=== PATIENT | male | born 1960 | race Caucasian/White ===

== ENCOUNTER 2017-11-16 07:35 | Day surgery (SDC) | payer OTHER ==
[2017-11-14 11:40] VITALS: BMI 36.6
--- NOTE | 2017-11-16 07:28 | HP ---
History & Physical Update - History History: No Change - Physical Physical: No Change - Assessment Assessment: No Change - Plan Plan: No Change (Initial H&P is in his paper chart. No new complaints or medictaions. Here today for elective L3/4 laminectomy, possible discectomy)
[2017-11-16] MEDS ORDERED: oxyCODONE HCL 10 MG SUSTAINED ACTING TABLET PO STA (08:35)
[2017-11-16] MEDS ORDERED: CEFAZOLIN 2 GM in DEXTROSE 5%-WATER - 100 ML IVPB ONE (09:30)
[2017-11-16] MEDS ORDERED: MIDAZOLAM HCL 2 MG/2 ML SINGLE DOSE VIAL ONE (10:05)
[2017-11-16] MEDS ORDERED: BUPIVACAINE HCL/PF (5 MG/ML) 30 ML VIAL IJ ONE (10:06)
[2017-11-16] MEDS ORDERED: DEXAMETHASONE SOD PHOSPHATE/PF 10 MG/ML SDV ONE (10:06)
[2017-11-16] MEDS ORDERED: LIDOCAINE 1%/EPI 1:100000 (20 ML MULTI DOSE VIAL) ONE (10:41)
[2017-11-16] MEDS ORDERED: methylPREDNISolone ACET (DEPO) 40 MG/1 ML VIAL ONE ×2 (10:41→11:04)
[2017-11-16] MEDS ORDERED: THROMBIN (BOVINE) 5,000 UNIT VIAL TP ONE ×2 (10:41→12:03)
[2017-11-16] MEDS ORDERED: ceFAZolin SODIUM 1 GM VIAL ONE ×2 (11:48→11:49)
[2017-11-16] MEDS ORDERED: ONDANSETRON 4 MG/2 ML VIAL ONE (11:49)
[2017-11-16] MEDS ORDERED: DEXAMETHASONE SOD PHOSPHATE 4 MG/1 ML VIAL ONE (11:49)
[2017-11-16] MEDS ORDERED: ePHEDrine SULFATE 50 MG/1 ML AMPULE ONE (11:53)
--- NOTE | 2017-11-16 13:11 | SURG ---
Surgery Shipping Inspector Note Shipping Inspector: Nomi Valdes PA-C Date of Service: 11/16/17 Diagnosis: L3/4 herniated disc, spinal stenosis, radiculopathy Procedure: L3/4 bilateral laminectomy, discectomy I was present for the entirety of the operative procedure. For further detail, please refer to operative report. Visit type - Case Type Case Type: Scheduled - New patient This patient is new to me today: Yes Date on this admission: 11/16/17
--- NOTE | 2017-11-16 13:11 | OP ---
Operative Note - Note: Operative Date: 11/16/17 Pre-Operative Diagnosis: L3/4 spinal stenosis with radiculopathy, herniated disc Operation: L3/4 bilateral laminectomy with discectomy Post-Operative Diagnosis: Same as Pre-op Surgeon: Jose Victor Vp Strategic Planning: Nomi Valdes Anesthesiologist/FREIGHT CAR CLEANER: Christina Panda Anesthesia: Spinal Specimens Removed: L3/4 disc Estimated Blood Loss (mls): 50 Fluid Volume Replaced (mls): 800 Operative Report Dictated: Yes
[2017-11-16] MEDS ORDERED: ONDANSETRON 4 MG/2 ML VIAL IVPUSH PRN (13:15)
[2017-11-16] MEDS ORDERED: LACTATED RINGERS SOLUTION 1,000 ML IV SCH (13:15)
[2017-11-16] MEDS ORDERED: oxyCODONE HCL 5 MG TABLET PO PRN (13:15)
--- NOTE | 2017-11-16 14:00 | OP ---
DATE OF OPERATION: 11/16/2017 PREOPERATIVE DIAGNOSIS: L3-4 stenosis. POSTOPERATIVE DIAGNOSIS: L3-4 stenosis. PROCEDURE PERFORMED: Laminectomy, L3-4. SURGEON: Jose Victor MD TRANSPLANT NURSE: RANI Thomas ESTIMATED BLOOD LOSS: 60 mL. INTRAVENOUS FLUIDS: Per Anesthesia. ANESTHESIA: Spinal/TLIP. COMPLICATIONS: None. DISPOSITION: Patient brought to PACU in stable condition. INDICATION FOR SURGERY: The patient is a 56-year-old gentleman who has been suffering from pain from his back down his leg. X-rays and MRI were completed which noted that he had spinal stenosis at L3-4. He had gone through an exhaustive course of treatment for this which included medications, physical therapy, as well as injections, and unfortunately his pain continued to persist despite all this. At this point, risks, benefits, alternatives were discussed, and the patient consented to surgery. OPERATIVE NOTE: Patient brought to the operating room by the anesthesia staff. After appropriate patient identification was performed, spinal anesthesia was given. A TLIP block was given. Patient was able to position himself prone onto the OR table. With all areas of bony prominences well padded at this time, 2 needles were placed into his back to blanca off the L3-4 segment. X-ray was taken to confirm this was correct. Needle was removed and 10 mL of lidocaine with epinephrine was injected into his back at this time. His back was prepped and draped in sterile manner. At this point timeout was completed. An incision was made from the top of L3 down to the bottom of L4. Dissection was carried down to the fascia. Fascia was split open at this time and appropriate retractors were then placed in. A spinal needle was placed onto the L3 lamina to blanca off the L3-4 level. X-ray was taken to confirm this was correct. Needle was removed and the microscope was brought in. The interspinous ligament of L3-4 was removed. Portion of the L3-4 spinous process was removed. Portion of the L3-4 lamina removed. was removed. The thecal sac was mobilized medially removed at this time. By the end of the procedure the L4 nerve root appeared to be well decompressed. All bleeding was well controlled at this time. Steroid was placed over the nerve root. FloSeal was placed over that. The fascia was closed with a number 1 running Vicryl suture. Subcutaneous tissue was closed with 2-0 Vicryl suture. Skin was closed with 3-0 Monocryl suture. Dermabond applied, Steri-Strips applied. Sterile dressing was applied. Patient was placed supine on the bed and brought to the PACU in stable condition. Camren [id number]
[2017-11-16 15:43] VITALS: BP 121/65; PULSE 87; TEMP 97.9
== END 2017-11-16 15:50 | disposition home or self-care (01) ==
LOC: FASU 07:35
PROVIDERS: ATTEND Orthopaedic Surgery Orthopaedic Surgery of the Spine
PROC: 01NB0ZZ Release Lumbar Nerve, Open Approach (ICD-10-PCS; principal; 2017-11-16 11:48)
DX: M48.061 Spinal stenosis, lumbar region without neurogenic claudication (principal)
CPT/HCPCS: 72100-TC-FY